=== PATIENT | male | born 1990 | race Caucasian/White ===

== ENCOUNTER 2016-11-06 19:42 | Emergency (ER) | payer OTHER ==
[~2016-11-06] VITALS: Ht 172.7 cm; Wt 86.5 kg
[2016-11-06 20:11] LABS: HEMATOCRIT 42.1 % (38.0-50.0); MCH 30.3 PG (29.0-34.0); MCHC 35.2 G/DL (30.0-36.0); MCV 86.1 FL (86-99); MEAN PLAT.VOLUME 10.7 uM^3 (9.0-12.4); PLATELET COUNT 229 K/uL (156-360); RBC DIS.WIDTH-CV 12.6 % (11.8-14.6); RBC DIS.WIDTH-SD 38.6 % (39-53); RED BLOOD COUNT 4.89 M/uL (4.00-5.50); WHITE BLOOD COUNT 6.9 K/uL (4.1-10.2)
[2016-11-06 20:20] LABS: ADD MIUA? YES; BILIRUBIN NEGATIVE; BLOOD MODERATE; COLOR YELLOW ((YELLOW)); GLUCOSE (STRIP) NEGATIVE; KETONES NEGATIVE; LEUKOCYTES NEGATIVE; NITRITE NEGATIVE; PROTEIN (STRIP) NEGATIVE; SPECIFIC GRAVITY 1.027 (1.000-1.030); UROBILINOGEN 0.2 MG/DL (0.2-1.0)
[2016-11-06 20:29] LABS: CHLORIDE 107 mEq/L (99-109); SODIUM 139 mEq/L (136-147)
[2016-11-06 20:31] LABS: GLUCOSE 115 mg/dL (70-99)
[2016-11-06 20:32] LABS: ANION GAP 8 MEQ/L (2-14)
[2016-11-06 20:33] LABS: TOTAL BILIRUBIN 0.9 mg/dL (0.0-1.0)
[2016-11-06 20:34] LABS: ALKALINE PHOSPHATASE 77 IU/L (3-129)
[2016-11-06 20:35] LABS: GFR ESTIMATE (CALCULATED) > 59 mL/min/
[2016-11-06 20:36] LABS: UREA NITROGEN (BUN) 17 mg/dL (9-23)
[2016-11-06 20:38] LABS: LIPASE 15 U/L (1.0-51.0)
[2016-11-06 20:44] LABS: BACTERIA RARE /HPF; EPITHELIAL CELLS RARE /HPF; MUCUS 3+ /LPF; UCUL ADDED? NO; WHITE BLOOD CELLS 0-5 /HPF (0-5)
[2016-11-06 20:45] LABS: CASTS NONE SEEN /LPF; CRYSTALS NONE SEEN
[2016-11-06] MEDS ORDERED: CIPRO500 MG PO (22:43)
[2016-11-06] MEDS ORDERED: ZOFRAN ODT4 MG PO (22:43)
[2016-11-06] MEDS ORDERED: FLAGYL500 MG PO (22:43)
[2016-11-06] MEDS ORDERED: NORCO 10/3251 TABLET PO (22:43)
[2016-11-06 23:18] VITALS: BP 122/79
[2016-11-06 23:35] LABS: C DIFF TOXIN POSITIVE (NEGATIVE)
[2016-11-06 23:36] LABS: PROBE CHECK PASS
[2016-11-07] MEDS ORDERED: FLAGYL500 MG PO (15:12)
[2016-11-09 12:52] LABS: POC NON-PRINT COM 1 ND
== END 2016-11-06 23:19 | disposition home or self-care (01) ==
LOC: EME 19:42
PROVIDERS: Physician Assistant
DX: A04.9 Bacterial intestinal infection, unspecified (principal); R50.9 Fever, unspecified; R11.2 Nausea with vomiting, unspecified; G89.29 Other chronic pain
CPT/HCPCS: 74177; 80053; 81003; 82272; 83690; 85027; 87493; 87506; 99281; 99285; J1885; J2405; J3010; J7030

== ENCOUNTER 2016-11-07 14:12 | Emergency (ER) | payer OTHER ==
[~2016-11-07] VITALS: Ht 172.7 cm; Wt 88.5 kg
[~2016-11-07 14:12] MED LIST: CIPRO500 MG PO; FLAGYL500 MG PO; NORCO 10/3251 TABLET PO; ZOFRAN ODT4 MG PO
[2016-11-07 14:17] VITALS: BP 121/77
[2016-11-07] MEDS ORDERED: FLAGYL500 MG PO (15:12)
== END 2016-11-07 15:34 | disposition home or self-care (01) ==
LOC: EME 14:12
DX: A04.7 Enterocolitis due to Clostridium difficile (principal)
CPT/HCPCS: 99281; 99283

== ENCOUNTER 2017-06-10 10:32 | Emergency (ER) | payer OTHER ==
[~2017-06-10] VITALS: Ht 172.7 cm; Wt 86.5 kg
[2017-06-10 11:33] LABS: HEMATOCRIT 42.7 % (38.0-50.0); MCH 30.3 PG (29.0-34.0); MCV 89.1 FL (86-99); MEAN PLAT.VOLUME 11.3 uM^3 (9.0-12.4); PLATELET COUNT 228 K/uL (156-360); RBC DIS.WIDTH-CV 12.2 % (11.8-14.6); RBC DIS.WIDTH-SD 40.3 % (39-53); RED BLOOD COUNT 4.79 M/uL (4.00-5.50); WHITE BLOOD COUNT 4.3 K/uL (4.1-10.2)
[2017-06-10 12:55] LABS: CHLORIDE 107 mEq/L (99-109); POTASSIUM 3.9 mEq/L (3.7-5.4); SODIUM 139 mEq/L (136-147)
[2017-06-10 12:58] LABS: GLUCOSE 96 mg/dL (70-99)
[2017-06-10 12:59] LABS: ANION GAP 7 MEQ/L (2-14); TOTAL BILIRUBIN 0.6 mg/dL (0.0-1.0)
[2017-06-10 13:01] LABS: ALKALINE PHOSPHATASE 73 IU/L (3-129); GFR ESTIMATE (CALCULATED) > 59 mL/min/
[2017-06-10 13:02] LABS: UREA NITROGEN (BUN) 12 mg/dL (9-23)
[2017-06-10 13:03] LABS: DIRECT BILIRUBIN 0.2 mg/dL (0.0-0.3)
[2017-06-10 13:55] LABS: ADD MIUA? NO; BILIRUBIN NEGATIVE; BLOOD NEGATIVE; COLOR YELLOW ((YELLOW)); GLUCOSE (STRIP) NEGATIVE; KETONES NEGATIVE; LEUKOCYTES NEGATIVE; NITRITE NEGATIVE; PROTEIN (STRIP) 30; SPECIFIC GRAVITY 1.028 (1.000-1.030); UCUL ADDED? NO; UROBILINOGEN 0.2 MG/DL (0.2-1.0)
[2017-06-10] MEDS ORDERED: ULTRAM50 MG PO (14:25)
[2017-06-10 14:56] VITALS: BP 127/99
== END 2017-06-10 14:58 | disposition home or self-care (01) ==
LOC: EME 10:32
PROVIDERS: Physician Assistant Medical
DX: R10.9 Unspecified abdominal pain (principal); M54.5 Low back pain; Z86.19 Personal history of other infectious and parasitic diseases
CPT/HCPCS: 74177; 80048; 80076; 81003; 85027; 86850; 86900; 86901; 87493; 87506; 99281; 99284; J1885; J7030

== ENCOUNTER 2017-06-25 11:54 | Emergency (ER) | payer OTHER ==
[~2017-06-25] VITALS: Ht 172.7 cm; Wt 91.3 kg
[~2017-06-25 11:54] MED LIST changes: +ULTRAM50 MG PO
[2017-06-25 13:10] LABS: EOSINOPHIL (%) 0.8 % (0-5); EOSINOPHIL COUNT 0.1 K/uL (0-0.3); HEMATOCRIT 36.7 % (38.0-50.0); IMMATURE GRANULOCYTE (%) 0.3 % (0.0-0.7); INSTRUMENT ABS NEUTROPHIL CT 3.8 K/uL; LYMPHOCYTE COUNT 1.7 K/uL (1.0-2.8); MCH 29.8 PG (29.0-34.0); MCHC 33.8 G/DL (30.0-36.0); MCV 88.2 FL (86-99); MEAN PLAT.VOLUME 10.8 uM^3 (9.0-12.4); MONOCYTE (%) 6.8 % (3-12); MONOCYTE COUNT 0.4 K/uL (0-0.8); NEUTROPHIL (%) 63.9 % (45-76); NEUTROPHIL COUNT 3.8 K/uL (1.8-6.4); PLATELET COUNT 224 K/uL (156-360); RBC DIS.WIDTH-CV 12.2 % (11.8-14.6); RBC DIS.WIDTH-SD 39.4 % (39-53); RED BLOOD COUNT 4.16 M/uL (4.00-5.50)
[2017-06-25 13:18] LABS: CHLORIDE 107 mEq/L (99-109); POTASSIUM 3.9 mEq/L (3.7-5.4); SODIUM 139 mEq/L (136-147)
[2017-06-25 13:21] LABS: GLUCOSE 130 mg/dL (70-99)
[2017-06-25 13:22] LABS: ANION GAP 11 MEQ/L (2-14); TOTAL BILIRUBIN 0.4 mg/dL (0.0-1.0)
[2017-06-25 13:24] LABS: ALKALINE PHOSPHATASE 74 IU/L (3-129); GFR ESTIMATE (CALCULATED) > 59 mL/min/
[2017-06-25 13:25] LABS: UREA NITROGEN (BUN) 12 mg/dL (9-23)
[2017-06-25 13:26] LABS: DIRECT BILIRUBIN 0.2 mg/dL (0.0-0.3)
[2017-06-25 14:09] LABS: HPCA INDEX 0.08
[2017-06-25 14:10] LABS: AHBS INDEX 87.04; HIV INDEX 0.08; HIV-1/2 AB/AG COMBO Nonreactive
[2017-06-25 14:14] LABS: HEPATITIS B SURFACE ANTIBODY REACTIVE
[2017-06-25 15:57] VITALS: BP 125/94
[2017-06-26 12:01] LABS: HBSG INDEX 0.18
== END 2017-06-25 15:59 | disposition home or self-care (01) ==
LOC: EME 11:54
PROVIDERS: Physician Assistant
PROC: 3E0234Z Introduction of Serum, Toxoid and Vaccine into Muscle, Percutaneous Approach (ICD-10-PCS; principal; 2017-06-25)
DX: Z77.21 Contact with and (suspected) exposure to potentially hazardous body fluids (principal); Z20.5 Contact with and (suspected) exposure to viral hepatitis; W46.0XXA Contact with hypodermic needle, initial encounter; Y99.0 Civilian activity done for income or pay; Z23 Encounter for immunization
CPT/HCPCS: 80048; 80076; 85025; 86703; 86706; 86803; 87340; 99281; 99284